=== PATIENT | female | born 2000 | race Caucasian/White ===

== ENCOUNTER 2021-12-20 19:19 | Emergency (ER) | payer BC, SELFPAY ==
--- NOTE | 2021-12-20 19:27 | ED.GENADULT ---
HPI - General Adult General Chief complaint: Extremity Injury, Lower Stated complaint: rt side and hip pain Time Seen by Provider: 12/20/21 19:37 Mode of arrival: ambulatory Limitations: no limitations History of Present Illness HPI narrative: 21-year-old female presents with concern for left hip pain, left side pain. She reports she was dancing today when she felt sudden pain in her hip area after doing a dance move. Reports it was a sharp pain that has since dull but is still painful. Report she took 600 mg ibuprofen. She reports pain worsens when she is getting up from sitting down and when she moves in certain ways, when she takes deep breath. She denies any direct injury or trauma. MD complaint: Muscle strain Related Data Allergies Allergy/AdvReac Type Severity Reaction Status Date / Time No Known Allergies Allergy Verified 12/20/21 19:36 Review of Systems Review of Systems: CONSTITUTIONAL: Denies malaise, chills, sweats, or fever. CARDIOVASCULAR: Denies chest pain, palpitations, or edema. RESPIRATORY: Denies cough or dyspnea. Reports left-sided pain with deep breathing GASTROINTESTINAL: Denies nausea, vomiting SKIN: Denies bruising, redness, laceration, abrasion MUSCULOSKELETAL: Reports left hip pain and side pain NEUROLOGIC: Denies numbness, weakness All systems reviewed & are unremarkable except as noted in HPI and below PMFSH Comments At time of signature, agree with nursing past medical, surgical, social and family history. There is no relevant family history pertinent to the presenting complaint Exam Narrative: GENERAL: Well-appearing, well-nourished, and in no acute distress. HEAD: Normocephalic EYES: PERRLA, sclera clear ENT: Mucous membranes moist. NECK: Supple. CHEST: No respiratory distress. Clear to auscultation. No bony deformities, no asymmetry. Speaks in full sentences. No chest wall tenderness HEART: Regular rate and rhythm. ABDOMEN: Soft, nontender, nondistended, normal active bowel sounds, no palpable masses. EXTREMITIES: Decreased strength with left hip flexion and extension SKIN: Warm, dry, no visible rash. NEURO: Alert and oriented x3. PSYCH: Normal mood and affect Course Course Emergency Course: Patient is aware of diagnosis, understands and agrees to treatment plan. Anticipatory guidance given. Patient agrees to follow-up as directed and is aware of reasons to seek care at the emergency department. Portions of this record may have been created with voice recognition software Level of Care: Express Care Visit Vital Signs Vital signs: Reviewed. Medical Decision Making MDM Narrative Medical decision making narrative: Patients injury and pain is consistent with musculoskeletal etiology. No signs of neurological or vascular compromise on exam. Compartments and tissues are soft without signs of compartment syndrome. Pain is felt appropriate for further evaluation on an outpatient basis. Critical Care Time Critical Care Time Critical Care Time: No Discharge Plan Discharge Clinical Impression: Muscle strain of left hip Patient Disposition: Home, Self-Care Condition: Stable Instructions: Hip Sprain (ED) Additional Instructions: Activity as tolerated. Take Motrin 800mg every 6-8 hours with food for the next 2-3 days, take muscle relaxers every 8 hours as needed for muscle spasm- do not drive or make any important decisions while on this medication for it can make you drowsy. Apply ice to the area 4-5 times daily. If you experience any worsening pain, swelling, numbness, weakness please go to ER. If your symptoms persist orthopedically for further evaluation Prescriptions: New cyclobenzaprine 10 mg tablet 10 mg PO TID PRN (Reason: muscle spasm) Qty: 20 0RF ibuprofen 800 mg tablet 800 mg PO Q6H PRN (Reason: pain) Qty: 30 0RF Follow-up/Referrals: Jaskaran Gongora MD [Physician] - UNKNOWN,DOCTOR [Primary Care Provider] - Stand Alone Forms: Work
[2021-12-20 19:36] VITALS: BP 131/92; PULSE 85; RESP 16; TEMP 37.4; O2SAT 100
== END 2021-12-20 19:53 | disposition home or self-care (01) ==
PROVIDERS: Emergency Provider Nurse Practitioner
DX: S76.011A Strain of muscle, fascia and tendon of right hip, initial encounter (principal); X58.XXXA Exposure to other specified factors, initial encounter; Y93.41 Activity, dancing
CPT/HCPCS: 99213; G0463